=== PATIENT | male | born 1960 | race African-American/Black ===

== ENCOUNTER 2021-09-15 03:45 | Emergency (ER) | payer MEDICAID ==
[~2021-09-15] VITALS: Ht 175.3 cm; Wt 63.5 kg
[2021-09-15 03:47] VITALS: BP 118/80
== END 2021-09-15 05:19 | disposition home or self-care (01) ==
LOC: ER 03:45
DX: J45.901 Unspecified asthma with (acute) exacerbation (principal)
CPT/HCPCS: 71045

== ENCOUNTER 2022-12-14 07:38 | Inpatient (IN) | payer MEDICAID ==
[~2022-12-14] VITALS: Ht 175.3 cm; Wt 67.1 kg
[2022-12-14] MEDS ORDERED: MORPHINE SULFATE 4 MG/ML SYR/VIAL IV ONE (08:00)
[2022-12-14] MEDS ORDERED: PROCHLORPERAZINE EDISYLATE 5 MG/ML 2ML VIAL IV ONE (08:00)
[2022-12-14] MEDS ORDERED: SODIUM CHLORIDE 0.9% 1,000 ML IVB ONE (08:00)
[2022-12-14] MEDS ORDERED: PANTOPRAZOLE 40 MG/10 ML VIAL INJ IV ONE (08:00)
[2022-12-14 08:26] LABS: Basophils # (auto) 0 10 ^3/uL (0-0.2); Basophils % (auto) 0.9 % (0.0-2.0); Eosinophils # (auto) 0.1 10 ^3/uL (0-0.8); Eosinophils % (auto) 2.3 % (0.0-7.0); Hematocrit 40.5 % (41.0-53.0); Hemoglobin 13.8 g/dL (13.5-17.5); Lymphocytes # (auto) 1.2 10 ^3/uL (0.4-5.4); Mean Corpuscular Hemoglobin 33.3 pg (28.0-32.0); Mean Corpuscular Hgb Conc. 34.2 g/dL (32.0-36.0); Mean Corpuscular Volume 97.4 fL (80.0-100.0); Monocytes # (auto) 0.4 10 ^3/uL (0-1.3); Monocytes % (auto) 7.5 % (0.0-12.0); Neutrophils # (auto) 3.3 10 ^3/uL (1.6-8.6); Neutrophils % (auto) 65.3 % (37.0-80.0); Red Blood Cells 4.15 10^6/uL (4.5-5.90); White Blood Cell 5.1 10^3/uL (4.4-10.8)
[2022-12-14 08:48] LABS: Alanine Aminotransferase 20 U/L (16-61); Albumin 3.4 g/dL (3.4-5.0); Anion Gap 4 (5-15); Blood Alcohol < 3.0 mg/dL (<10); Blood Urea Nitrogen 8 mg/dL (7-18); Calcium 8.1 mg/dL (8.5-10.1); Carbon Dioxide 26 mmol/L (21-32); Chloride 113 mmol/L (98-107); Glucose 103 mg/dL (74-106); Lipase 111 U/L (73-393); Potassium 4.2 mmol/L (3.5-5.1); Sodium 143 mmol/L (136-145)
[2022-12-14 08:52] LABS: Alkaline Phosphatase 50 U/L (45-117); Aspartate Aminotransferase 45 U/L (15-37); BUN/Creatinine Ratio 7.1 (10.0-20.0); Bilirubin, Total 0.5 mg/dL (0.2-1.0); GFR African American 85 mL/min; GFR Non-African American 70 mL/min; Total Protein 6.4 g/dL (6.4-8.2)
[2022-12-14] MEDS ORDERED: IOHEXOL 300 MG/ML 100ML BOTTLE IJ ONE (09:11)
[2022-12-14 11:29] LABS: Urine Bacteria FEW /hpf (None Seen); Urine Blood 1+ /uL (Negative); Urine WBC 1 /hpf (0 - 3)
[2022-12-14] MEDS ORDERED: DOCUSATE SOD 100 MG CAP PO PRN (11:30)
[2022-12-14] MEDS ORDERED: PANTOPRAZOLE 80 MG in SODIUM CHL 0.9% 100 ML IV ONE (11:30)
[2022-12-14] MEDS ORDERED: SODIUM CHLORIDE 0.9% 1,000 ML IV ONE (11:30)
[2022-12-14] MEDS ORDERED: MORPHINE SULFATE INJ 2 MG/ml SYRG IM ONE (11:30)
[2022-12-14] MEDS ORDERED: PANTOPRAZOLE 40mg/50ML NS AE 50 ML IV ONE (11:30)
[2022-12-14] MEDS ORDERED: MORPHINE SULFATE INJ 2 MG/ml SYRG IV PRN (11:30)
[2022-12-14 11:32] LABS: Urine Specific Gravity 1.052 (1.001-1.035)
[2022-12-14] MEDS ORDERED: SODIUM CHLORIDE 0.9% 1,800 ML IV ONE (11:45)
[2022-12-14 11:58] LABS: Alcohol, Urine < 3.0 mg/dL (0-10); Amphetamine Screen, Urine NEGATIVE (NEGATIVE); Barbiturate Scree,Urine NEGATIVE (NEGATIVE); Benzodiazephine Screen, Urine NEGATIVE (NEGATIVE); Cannabinoid Screen, Urine POSITIVE (NEGATIVE)
[2022-12-14 12:06] LABS: Cocaine Screen, Urine NEGATIVE (NEGATIVE); Opiate Scree,Urine NEGATIVE (NEGATIVE); Phencyclidine Screen, Urine NEGATIVE (NEGATIVE)
[2022-12-14 12:10] LABS: Hematocrit 40.2 % (41.0-53.0); Hemoglobin 13.7 g/dL (13.5-17.5)
[2022-12-14 12:21] LABS: INR 1.06 (0.9-1.15)
[2022-12-14] MEDS: cefTRIAXone 1GM/50ML D5W 50 ML IV SCH (13:22)
[2022-12-14] MEDS: ONDANSETRON HCL 4 MG/2 ML VIAL IV PRN ×3 (13:29→19:28)
[2022-12-14] MEDS: SODIUM CHLORIDE 0.9% 1,000 ML IV SCH ×2 (13:57→23:59)
[2022-12-14 18:57] LABS: Hematocrit 35.8 % (41.0-53.0); Hemoglobin 12.1 g/dL (13.5-17.5)
[2022-12-14 23:47] VITALS: BP 152/79
[2022-12-15 00:44] LABS: Hematocrit 35.1 % (41.0-53.0); Hemoglobin 11.8 g/dL (13.5-17.5)
[2022-12-15 03:58] VITALS: BP 152/79
[2022-12-15] MEDS: SODIUM CHLORIDE 0.9% 1,000 ML IV SCH ×3 (04:10→20:50)
[2022-12-15 05:00] VITALS: BP 119/63
[2022-12-15 06:30] LABS: Basophils # (auto) 0 10 ^3/uL (0-0.2); Basophils % (auto) 0.8 % (0.0-2.0); Eosinophils # (auto) 0.1 10 ^3/uL (0-0.8); Eosinophils % (auto) 2.1 % (0.0-7.0); Hematocrit 35.3 % (41.0-53.0); Hemoglobin 12.1 g/dL (13.5-17.5); Lymphocytes # (auto) 1.4 10 ^3/uL (0.4-5.4); Lymphocytes % (auto) 26.9 % (10.0-50.0); Mean Corpuscular Hemoglobin 33.3 pg (28.0-32.0); Mean Corpuscular Hgb Conc. 34.2 g/dL (32.0-36.0); Mean Corpuscular Volume 97.3 fL (80.0-100.0); Monocytes # (auto) 0.4 10 ^3/uL (0-1.3); Monocytes % (auto) 8.5 % (0.0-12.0); Neutrophils # (auto) 3.3 10 ^3/uL (1.6-8.6); Neutrophils % (auto) 61.7 % (37.0-80.0); Nucleated Red Blood Cells % 0.1 %; Red Blood Cells 3.63 10^6/uL (4.5-5.90); Red Cell Distribution Width 12.7 % (11.8-14.3); White Blood Cell 5.3 10^3/uL (4.4-10.8)
[2022-12-15 06:41] LABS: Albumin 2.7 g/dL (3.4-5.0); Calcium 7.2 mg/dL (8.5-10.1); Potassium 3.1 mmol/L (3.5-5.1)
[2022-12-15 06:43] LABS: BUN/Creatinine Ratio 5.7 (10.0-20.0); Bilirubin, Total 0.6 mg/dL (0.2-1.0); Total Protein 5.1 g/dL (6.4-8.2)
[2022-12-15] MEDS ORDERED: POTASSIUM CHL 20 Meq TABLET PO ONE (07:00)
[2022-12-15] MEDS: cefTRIAXone 1GM/50ML D5W 50 ML IV SCH (08:12)
[2022-12-15] MEDS: ONDANSETRON HCL 4 MG/2 ML VIAL IV PRN (08:13)
[2022-12-15 09:17] VITALS: BP 135/73
[2022-12-15] MEDS ORDERED: POTASSIUM EFFERVESENT TAB 25 MEQ GT ONE (10:15)
[2022-12-15 12:10] LABS: Hematocrit 36.5 % (41.0-53.0); Hemoglobin 12.5 g/dL (13.5-17.5)
[2022-12-15 17:17] VITALS: BP 102/48
[2022-12-15 18:40] LABS: Hematocrit 37.4 % (41.0-53.0); Hemoglobin 12.6 g/dL (13.5-17.5)
[2022-12-15 22:00] VITALS: BP 134/68
[2022-12-16 05:00] VITALS: BP 147/68
[2022-12-16] MEDS: SODIUM CHLORIDE 0.9% 1,000 ML IV SCH (05:10)
[2022-12-16 07:02] LABS: Basophils # (auto) 0 10 ^3/uL (0-0.2); Basophils % (auto) 0.8 % (0.0-2.0); Eosinophils # (auto) 0.2 10 ^3/uL (0-0.8); Eosinophils % (auto) 4.6 % (0.0-7.0); Hematocrit 38.1 % (41.0-53.0); Lymphocytes # (auto) 1.7 10 ^3/uL (0.4-5.4); Lymphocytes % (auto) 33.7 % (10.0-50.0); Mean Corpuscular Hemoglobin 32.9 pg (28.0-32.0); Mean Corpuscular Hgb Conc. 34.1 g/dL (32.0-36.0); Mean Corpuscular Volume 96.5 fL (80.0-100.0); Monocytes # (auto) 0.4 10 ^3/uL (0-1.3); Monocytes % (auto) 7.7 % (0.0-12.0); Neutrophils # (auto) 2.7 10 ^3/uL (1.6-8.6); Neutrophils % (auto) 53.2 % (37.0-80.0); Nucleated Red Blood Cells % 0.2 %; Red Blood Cells 3.95 10^6/uL (4.5-5.90); Red Cell Distribution Width 12.9 % (11.8-14.3)
[2022-12-16 07:24] LABS: BUN/Creatinine Ratio 5.6 (10.0-20.0); Calcium 8.2 mg/dL (8.5-10.1); Potassium 3.3 mmol/L (3.5-5.1)
[2022-12-16] MEDS: cefTRIAXone 1GM/50ML D5W 50 ML IV SCH (08:47)
[2022-12-16] MEDS ORDERED: ALBU108A14 IN ×2 (09:41→10:00)
[2022-12-16] MEDS ORDERED: ZOFR4T PO ×2 (09:41→10:00)
[2022-12-16] MEDS ORDERED: POTASSIUM EFFERVESENT TAB 25 MEQ PO ONE (09:45)
[2022-12-16 10:20] VITALS: BP 132/75
== END 2022-12-16 11:00 | disposition home or self-care (01) | DRG 253 ==
LOC: ER 07:38 → TELE 11:26 → TELE-CENTR 21:58
PROVIDERS: ADMIT Nurse Practitioner Family; ATTEND Nurse Practitioner Family
DX: K92.2 Gastrointestinal hemorrhage, unspecified (principal); R71.0 Precipitous drop in hematocrit; E87.6 Hypokalemia; F20.9 Schizophrenia, unspecified; F12.10 Cannabis abuse, uncomplicated; F17.210 Nicotine dependence, cigarettes, uncomplicated; F31.9 Bipolar disorder, unspecified; F43.10 Post-traumatic stress disorder, unspecified; Z71.6 Tobacco abuse counseling
CPT/HCPCS: 36415; 74177; 80048; 80053; 80307; 80320; 81001; 83690; 85014; 85018; 85025; 85610; 86850; 86900; 86901; 93005; 96361; 96365; 96366; 96368; 96375; 96376; C9113; G0378; J0696; J2405

== ENCOUNTER 2023-05-14 10:40 | Emergency (ER) | payer MEDICAID ==
[~2023-05-14] VITALS: Ht 175.3 cm; Wt 59.3 kg
[~2023-05-14 10:40] MED LIST: ALBU108A14 IN; ZOFR4T PO
[2023-05-14 11:30] VITALS: BP 119/74; PULSE 90; RESP 16; O2SAT 97
== END 2023-05-14 16:16 | disposition left against medical advice (07) ==
LOC: ER 10:40
DX: M79.644 Pain in right finger(s) (principal); Z53.21 Procedure and treatment not carried out due to patient leaving prior to being seen by health care provider
CPT/HCPCS: 73140; 99281; J7030

== ENCOUNTER 2023-10-05 23:18 | Emergency (ER) | payer MEDICARE, MEDICAID ==
[~2023-10-05] VITALS: Ht 182.9 cm; Wt 60.0 kg
[2023-10-06 03:06] VITALS: BP 142/78; PULSE 88; RESP 16; TEMP 98.6; O2SAT 95
== END 2023-10-06 03:04 | disposition home or self-care (01) ==
LOC: EDBD 23:18 → ER 23:18
DX: M25.511 Pain in right shoulder (principal); M25.551 Pain in right hip; F10.10 Alcohol abuse, uncomplicated; F17.210 Nicotine dependence, cigarettes, uncomplicated; F12.10 Cannabis abuse, uncomplicated; R53.1 Weakness; W18.09XA Striking against other object with subsequent fall, initial encounter; Y93.89 Activity, other specified; Y92.89 Other specified places as the place of occurrence of the external cause; Y99.8 Other external cause status
CPT/HCPCS: 73030; 73502; 93005

== ENCOUNTER 2024-11-02 13:27 | Emergency (ER) | payer MEDICARE, MEDICAID ==
[~2024-11-02] VITALS: Ht 175.3 cm; Wt 52.9 kg
[2024-11-02] MEDS: DexAMETHasone 4 MG TAB PO ONE (14:25)
--- NOTE | 2024-11-02 14:27 | DVH ---
EXAM: XY CHEST PORTABLE REASON FOR EXAM: sob TECHNIQUE: 1 view of the chest COMPARISON: CHEST PORTABLE on DOS: 09/15/21 FINDINGS/IMPRESSION: LUNGS: No pleural effusion, consolidation, or pneumothorax MEDIASTINUM: Unremarkable BONES: No acute osseous abnormality OTHER: None
--- NOTE | 2024-11-02 14:30 | ED.PDOC ---
SOB-HPI HPI Comments 64 y/o M, with PMHx of asthma and schizophrenia presents to the ED for CC of shortness of breath. Patient states, he has been experiencing shortness of breath with an associated wheezing like cough onset, Saturday (10/30/24). Patient reports, that he has been using his inhaler and breathing treatments at home; endorses no relief of symptoms. Patient drinks alcohol and smokes tobacco and marijuana. Patient denies fever, chills, sweats, nasal congestion, or sore throat. No other symptoms or modifying factors present at this time. Chief Complaint: Shortness of Breath Time Seen by MD: 14:05 Primary Care Provider: niko Hernandez notes: Nurses Notes, Medications, Allergies Information Source: Patient Mode of Arrival: Ambulatory Severity: Moderate Timing: Days Duration: Since onset Context: At Rest PE Risk Factors: None History of: Asthma Prehospital treatment: Breathing Tx Modifying Factors: Nothing Associated Signs and Symptoms: Wheeze, Cough If cough with SOB: Non-Productive Past Medical History PAST MEDICAL HISTORY: Asthma, Schizophrenia Family History Family History: Reviewed,noncontributory to illness, No family hx of Cancer, No family hx of DM, No family hx of Heart jamie, No family hx of HTN, No family hx ofKidney jamie, No family hx of Liver jamie, No family hx of Lung jamie, No family hx of Stroke Social History Smoker: Cigarettes Alcohol: Occasionally Drugs: Marijuana Lives In: Home Constitutional: denies: chills, diaphoresis, fatigue, fever, malaise, sweats, weakness, others EENTM: denies: blurred vision, double vision, ear bleeding, ear discharge, ear drainage, ear pain, ear ringing, eye pain, eye redness, hearing loss, mouth pain, mouth swelling, nasal discharge, nose bleeding, nose congestion, nose pain, photophobia, tearing, throat pain, throat swelling, voice changes, others Respiratory: reports: cough, shortness of breath; denies: hemoptysis, orthopnea, SOB at rest, SOB with excertion, stridor, wheezing, others Cardiovascular: denies: chest pain, dizzy spells, diaphoresis, Dyspnea on exertion, edema, irregular heart beat, left arm pain, lightheadedness, palpitations, PND, syncope, others Gastrointestinal: denies: abdomen distended, abdominal pain, blood streaked bowels, constipated, diarrhea, dysphagia, difficulty swallowing, hematemesis, melena, nausea, poor appetite, poor fluid intake, rectal bleeding, rectal pain, vomiting, others Genitourinary: denies: burning, dysuria, flank pain, frequency, hematuria, incontinence, penile discharge, penile sore, pain, testicle pain, testicle swelling, urgency, others Neurological: denies: dizziness, fainting, headache, left sided numbness, left sided weakness, numbness, paresthesia, pre-existing deficit, right sided numbness, right sided weakness, seizure, speech problems, tingling, tremors, weakness, others Musculoskeletal: denies: back pain, gout, joint pain, joint swelling, muscle pain, muscle stiffness, neck pain, others Integumetry: denies: bruises, change in color, change in hair/nails, dryness, laceration, lesions, lumps, rash, wounds, others Allergic/Immunocompromised: denies: Difficulty Healing, Frequent Infections, Hives, Itching, others Hematologic/Lymphatic: denies: anemia, blood clots, easy bleeding, easy bruising, swollen glands, others Endocrine: denies: excessive hunger, excessive sweating, excessive thirst, excessive urination, flushing, intolerance to cold, intolerance to heat, unexplained weight gain, unexplained weight loss, others Psychiatric: denies: anxiety, bipolar disorder, depression, hopeless, panic disorder, schizophrenia, sleepless, suicidal, others All Other Systems: Reviewed and Negative Physical Exam General Appearance: No Apparent Distress, Normal HEENT: Normal ENT Inspection, Pharynx Normal, TMs Normal Neck: Full Range of Motion, Non-Tender, Normal, Normal Inspection Respiratory: Chest Non-Tender, Lungs Clear, No Accessory Muscle Use, No Respiratory Distress, Normal Breath Sounds Cardiovascular: No Edema, No Murmur, No Gallop, Normal Peripheral Pulses, Regular Rate/Rhythm Breast Exam: Deferred Gastrointestinal: No Organomegaly, Non Tender, No Pulsatile Mass, Normal Bowel Sounds, Soft Genitalia: Deferred Pelvic: Deferred Rectal: Deferred Extremities: No calf tenderness, Normal capillary refill, Normal inspection, Normal range of motion, Non-tender, No pedal edema Musculoskeletal : Apperance: Normal Neurologic: Alert, 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 Was a procedure done?: No Differential Dx Differential Diagnosis: Anxiety, Asthma, Bronchitis, CHF, COPD, Hyperventilation, Panic Attack, Pneumonia, Pneumothorax, Respiratory Distress, Sinusitis, Pharyngitis, URI X-Ray, Labs, Meds, VS Vital Signs Date Time Temp Pulse Resp B/P (MAP) Pulse Ox O2 Delivery O2 Flow Rate FiO2 11/02/24 14:32 16 97 Room Air* 0 21 11/02/24 14:05 99.3 99 20 140/80 (100) 96 99.3 11/02/24 14:04 20 96 Room Air* 0 21 Current Medications Medications (Trade) Dose Ordered Sig/Annita Route Start Time Stop Time Status Last Admin Albuterol (Ventolin Medneb) 5 mg ONCE ONCE NEB 11/02/24 14:00 11/02/24 14:01 DC 11/02/24 14:31 Dexamethasone (Decadron Tablet) 4 mg ONCE ONCE PO 11/02/24 14:00 11/02/24 14:01 DC 11/02/24 14:25 [place] [id number] Ph: [phone] DIAGNOSTIC IMAGING Diagnostic Imaging Report : [id number] Signed PATIENT: NANI BEAVERS ACCT: [id number] UNIT: [id number] : 1960 LOC: ER ROOM / BED: / AGE / SEX: 64 / M ADM STATUS: REG ER SERVICE [id number] ORDERING PHYSICIAN: JAGDEEP KHAN MD PROCEDURE(s): CXRP - CHEST PORTABLE REASON: sob ORDER NUMBER(s): [id number], ACCESSION NUMBER(s): [id number] EXAM: XY CHEST PORTABLE REASON FOR EXAM: sob TECHNIQUE: 1 view of the chest COMPARISON: CHEST PORTABLE on DOS: 09/15/21 FINDINGS/IMPRESSION: LUNGS: No pleural effusion, consolidation, or pneumothorax MEDIASTINUM: Unremarkable BONES: No acute osseous abnormality OTHER: None ATED BY: KRISTA SALAZAR MD DICTATED DATE/TIME: 11/02/24 [id number] SIGNED BY: KRISTA SALAZAR MD SIGNED DATE/TIME: 11/02/24 1424 CC: Time of 1ST Reevaluation: 14:35 Reevaluation 1ST: Unchanged Time of 2ND Reevaluation: 15:37 Reevaluation 2ND: Resolved Patient Education/Counseling: Diagnosis, Treatment, Prognosis, Need For Follow Up Family Education/Counseling: No Family Present Additional Information The following tests were ordered, and results were reviewed by me: CXR I reviewed and agreed with the following test results read by other providers: CXR I discussed treatment and results with medical personnel and: patient Comprehensive systems review obtained and negative except for what is stated in the HPI. Departure 1 Departure Time of Disposition: 15:37 Impression: Primary Impression: Asthmatic bronchitis with acute exacerbation Qualified Codes: J45.21 - Mild intermittent asthma with (acute) exacerbation Additional Impressions: Tobacco abuse Tobacco abuse counseling Disposition: HOME / SELF CARE / HOMELESS Condition: Good e-Prescriptions Prednisone (Prednisone) 20 Mg Tab 20 MG PO DAILY for 5 Days, #5 TAB Prov: JAGDEEP KHAN MD 11/02/24 Discharged With: Self Critical Care Note Critical Care Time?: No Stability Stability form required: No Heart Score Heart Score: Heart Score Response (Comments) Value History N/A 0 EKG N/A 0 Age N/A 0 Risk Factors N/A 0 Troponin N/A 0 Total 0 I personally scribed for JAGDEEP KHAN MD ([email or web address]) on 11/02/24 at 14:30. Electronically submitted by Chantelle Peterson ([email or web address]). I personally scribed for JAGDEEP KHAN MD ([email or web address]) on 11/02/24 at 14:32. Electronically submitted by Chantelle Peterson ([email or web address]). JAGDEEP KHAN MD November 02, 2024 14:30
[2024-11-02] MEDS: ALBUTEROL SULF 2.5 MG/0.5ML(0.5%) NEB SOLN NEB ONE (14:31)
[2024-11-02] MEDS ORDERED: PRED20TA2 PO (15:38)
[2024-11-02 15:54] VITALS: BP 136/74; PULSE 84; RESP 17; TEMP 99.7; O2SAT 98
== END 2024-11-02 15:57 | disposition home or self-care (01) ==
LOC: ER 13:31
DX: J45.901 Unspecified asthma with (acute) exacerbation (principal); Z71.6 Tobacco abuse counseling; F20.9 Schizophrenia, unspecified; F10.90 Alcohol use, unspecified, uncomplicated; Y90.9 Presence of alcohol in blood, level not specified; F17.210 Nicotine dependence, cigarettes, uncomplicated; F19.90 Other psychoactive substance use, unspecified, uncomplicated
CPT/HCPCS: 71045; 94640; 99283; J8540

== ENCOUNTER 2025-05-29 04:25 | Inpatient (IN) | payer MEDICARE, MEDICAID ==
[~2025-05-29] VITALS: Ht 175.3 cm; Wt 58.9 kg
[2025-05-29 04:25] VITALS: RESP 15
[~2025-05-29 04:25] MED LIST changes: +PRED20TA2 PO
--- NOTE | 2025-05-29 04:51 | ED.PDOC ---
SOB-HPI HPI Comments 64-year-old male who came to ER for shortness of breath. Patient does have history of asthma. 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 Inhalers and prednisone taken offered no relief. Chief Complaint: Shortness of breath Time Seen by MD: 04:51 Primary Care Provider: niko Hernandez notes: Nurses Notes Information Source: Patient Mode of Arrival: EMS Past Medical History PAST MEDICAL HISTORY: Asthma, Schizophrenia Family History Family History: Reviewed,noncontributory to illness, No family hx of Cancer, No family hx of DM, No family hx of Heart jamie, No family hx of HTN, No family hx ofKidney jamie, No family hx of Liver jamie, No family hx of Lung jamie, No family hx of Stroke Social History Smoker: Cigarettes Alcohol: Occasionally Drugs: Marijuana Lives In: Home Constitutional: denies: chills, diaphoresis, fatigue, fever, malaise, sweats, weakness, others EENTM: denies: blurred vision, double vision, ear bleeding, ear discharge, ear drainage, ear pain, ear ringing, eye pain, eye redness, hearing loss, mouth pain, mouth swelling, nasal discharge, nose bleeding, nose congestion, nose pain, photophobia, tearing, throat pain, throat swelling, voice changes, others Respiratory: reports: cough, shortness of breath, wheezing; denies: hemoptysis, orthopnea, SOB at rest, SOB with excertion, stridor, others Cardiovascular: denies: chest pain, dizzy spells, diaphoresis, Dyspnea on exertion, edema, irregular heart beat, left arm pain, lightheadedness, palpitations, PND, syncope, others Gastrointestinal: denies: abdomen distended, abdominal pain, blood streaked bowels, constipated, diarrhea, dysphagia, difficulty swallowing, hematemesis, melena, nausea, poor appetite, poor fluid intake, rectal bleeding, rectal pain, vomiting, others Genitourinary: denies: burning, dysuria, flank pain, frequency, hematuria, incontinence, penile discharge, penile sore, pain, testicle pain, testicle swelling, urgency, others Neurological: denies: dizziness, fainting, headache, left sided numbness, left sided weakness, numbness, paresthesia, pre-existing deficit, right sided numbness, right sided weakness, seizure, speech problems, tingling, tremors, weakness, others Musculoskeletal: denies: back pain, gout, joint pain, joint swelling, muscle pain, muscle stiffness, neck pain, others Integumetry: denies: bruises, change in color, change in hair/nails, dryness, laceration, lesions, lumps, rash, wounds, others Allergic/Immunocompromised: denies: Difficulty Healing, Frequent Infections, Hives, Itching, others Hematologic/Lymphatic: denies: anemia, blood clots, easy bleeding, easy bruising, swollen glands, others Endocrine: denies: excessive hunger, excessive sweating, excessive thirst, excessive urination, flushing, intolerance to cold, intolerance to heat, unexp lained weight gain, unexplained weight loss, others Psychiatric: denies: anxiety, bipolar disorder, depression, hopeless, panic disorder, schizophrenia, sleepless, suicidal, others Physical Exam General Appearance: No Apparent Distress, Normal HEENT: Normal ENT Inspection, Pharynx Normal, TMs Normal Neck: Full Range of Motion, Non-Tender, Normal, Normal Inspection Respiratory: Chest Non-Tender, No Accessory Muscle Use, Wheezing Cardiovascular: No Edema, No JVD, No Murmur, No Gallop, Normal Peripheral Pulses, Regular Rate/Rhythm Breast Exam: Deferred Gastrointestinal: No Organomegaly, Non Tender, No Pulsatile Mass, Normal Bowel Sounds, Soft Genitalia: Deferred Pelvic: Deferred Rectal: Deferred Extremities: No calf tenderness, Normal capillary refill, Normal inspection, Normal range of motion, Non-tender, No pedal edema Musculoskeletal : Apperance: Normal 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 Was a procedure done?: No Differential Dx Differential Diagnosis: Anxiety, Asthma, Bronchitis, Respiratory Distress, Pharyngitis, URI X-Ray, Labs, Meds, VS Vital Signs Date Time Temp Pulse Resp B/P (MAP) Pulse Ox O2 Delivery O2 Flow Rate FiO2 05/29/25 05:31 97.8 79 15 133/69 (90) 90 97.8 05/29/25 05:00 18 98 Room Air* 0 21 05/29/25 04:48 62 05/29/25 04:37 98.3 80 22 152/102 98 98.3 05/29/25 04:25 15 Room Air* 0 21 Lab Test 05/29/25 05:08 Range/Units White Blood Count 5.9 4.4-10.8 10^3/uL Red Blood Count 4.29 L 4.5-5.90 10^6/uL Hemoglobin 13.9 13.5-17.5 g/dL Hematocrit 41.8 41.0-53.0 % Mean Corpuscular Volume 97.4 80.0-100.0 fL Mean Corpuscular Hemoglobin 32.5 H 28.0-32.0 pg Mean Corpuscular Hemoglobin Concent 33.3 32.0-36.0 g/dL Red Cell Distribution Width 12.7 11.8-14.3 % Platelet Count 235 140-450 10^3/uL Mean Platelet Volume 6.8 L 6.9-10.8 fL Neutrophils (%) (Auto) 79.5 37.0-80.0 % Lymphocytes (%) (Auto) 13.6 10.0-50.0 % Monocytes (%) (Auto) 6.2 0.0-12.0 % Eosinophils (%) (Auto) 0.3 0.0-7.0 % Basophils (%) (Auto) 0.4 0.0-2.0 % Neutrophils # (Auto) 4.7 1.6-8.6 10 ^3/uL Lymphocytes # (Auto) 0.8 0.4-5.4 10 ^3/uL Monocytes # (Auto) 0.4 0-1.3 10 ^3/uL Eosinophils # (Auto) 0 0-0.8 10 ^3/uL Basophils # (Auto) 0 0-0.2 10 ^3/uL Nucleated Red Blood Cells 0.0 % Sodium Level 141 136-145 mmol/L Potassium Level 4.2 3.5-5.1 mmol/L Chloride Level 108 H 98-107 mmol/L Carbon Dioxide Level 27 20-31 mmol/L Anion Gap 6 5-15 Blood Urea Nitrogen 12 9-23 mg/dL Creatinine 0.99 0.700-1.30 mg/dL Glomerular Filtration Rate Calc 84 >90 mL/min BUN/Creatinine Ratio 12.1 10.0-20.0 Serum Glucose 107 H 74-106 mg/dL Calcium Level 8.8 8.7-10.4 mg/dL Magnesium Level 2.2 1.6-2.6 mg/dL Total Bilirubin 0.6 0.2-1.0 mg/dL Aspartate Amino Transferase (AST) 33 13-40 U/L Alanine Aminotransferase (ALT) 19 7-40 U/L Alkaline Phosphatase 55 46-116 U/L Troponin I High Sensitivity 7 </=54 ng/L B-Type Natriuretic Peptide 22.12 0-100 pg/mL Total Protein 6.3 5.7-8.2 g/dL Albumin 4.0 3.2-4.8 g/dL Current Medications Medications (Trade) Dose Ordered Sig/Annita Route Start Time Stop Time Status Last Admin Prednisone 40 mg ONCE ONCE PO 05/29/25 05:00 05/29/25 05:01 DC 05/29/25 05:00 Albuterol (Ventolin Medneb) 5 mg ONCE ONCE NEB 05/29/25 05:00 05/29/25 05:01 DC 05/29/25 05:00 Magnesium Sulfate/ Dextrose 100 ml @ 100 mls/hr ONCE ONCE IV 05/29/25 05:00 05/29/25 05:59 DC 05/29/25 05:00 Time of 1ST Reevaluation: 04:47 Reevaluation 1ST: Unchanged Patient Education/Counseling: Diagnosis, Treatment Family Education/Counseling: No Family Present SEPSIS Sepsis Screen Physician Orders Chest Portable (05/29/25 04:46) Electrocardigram (05/29/25 04:46) Troponin-I Hs (05/29/25 05:46) Troponin-I Hs (05/29/25 07:46) Venous Blood Gas (05/29/25 04:46) Vital Signs Date Time Temp Pulse Resp B/P (MAP) Pulse Ox O2 Delivery O2 Flow Rate FiO2 05/29/25 05:31 97.8 79 15 133/69 (90) 90 97.8 05/29/25 05:00 18 98 Room Air* 0 21 05/29/25 04:48 62 05/29/25 04:37 98.3 80 22 152/102 98 98.3 05/29/25 04:25 15 Room Air* 0 21 Laboratory Tests Test 05/29/25 05:08 White Blood Count 5.9 10^3/uL (4.4-10.8) Medications Medications Dose Ordered Sig/Annita Route Start Time Stop Time Status Last Admin Dose Admin Albuterol 5 mg ONCE ONCE NEB 05/29/25 05:00 05/29/25 05:01 DC 05/29/25 05:00 Magnesium Sulfate/ Dextrose 100 ml @ 100 mls/hr ONCE ONCE IV 05/29/25 05:00 05/29/25 05:59 DC 05/29/25 05:00 Prednisone 40 mg ONCE ONCE PO 05/29/25 05:00 05/29/25 05:01 DC 05/29/25 05:00 Departure 1 Departure Time of Disposition: 06:30 Impression: Primary Impression: Tobacco abuse Additional Impressions: Asthmatic bronchitis with acute exacerbation Respiratory failure with hypoxia Disposition: ADMITTED INPATIENT Admit to: Med Surg Condition: Guarded Discharged With: Self Comments Patient with COPD, still SOB after treatment. Patient will need admission for supportive care and further workup Critical Care Note Critical Care Time?: No Stability Stability form required: No Heart Score Heart Score: Heart Score Response (Comments) Value History N/A 0 EKG N/A 0 Age N/A 0 Risk Factors N/A 0 Troponin N/A 0 Total 0 I personally scribed for EMIR REBOLLEDO MD ([email or web address]) on 05/29/25 at 04:51. Electronically submitted by August Ashton ([email or web address]). EMIR REBOLLEDO MD May 29, 2025 04:51
[2025-05-29] MEDS: predniSONE 20 MG TAB PO ONE (05:00)
[2025-05-29] MEDS: MAGNESIUM SULFATE 1GM/100ML 100 ML IV ONE (05:00)
[2025-05-29] MEDS: ALBUTEROL SULF 2.5 MG/0.5ML(0.5%) NEB SOLN NEB ONE (05:00)
[2025-05-29] MEDS: ALBUTEROL SULF 2.5 MG/0.5ML(0.5%) NEB SOLN ONE (05:00)
--- NOTE | 2025-05-29 05:18 | DVH ---
CHEST RADIOGRAPH INDICATION: SOB TECHNIQUE: Single frontal view of the chest was obtained COMPARISON: XY CHEST PORTABLE on DOS: 11/02/24, CHEST PORTABLE on DOS: 09/15/21, CXRP on DOS: 09/15/21 FINDINGS: Lines and Tubes: None Lungs: Clear Pleura: No effusion. No pneumothorax. Cardiomediastinal contours: Unremarkable Bones: Unremarkable IMPRESSION: 1. No acute disease.
[2025-05-29 05:22] LABS: Hematocrit 41.8 % (41.0-53.0); Hemoglobin 13.9 g/dL (13.5-17.5); Mean Corpuscular Hemoglobin 32.5 pg (28.0-32.0); Mean Corpuscular Volume 97.4 fL (80.0-100.0); Nucleated Red Blood Cells % 0.0 %
[2025-05-29 05:37] LABS: Alanine Aminotransferase 19 U/L (7-40); Albumin 4.0 g/dL (3.2-4.8); Alkaline Phosphatase 55 U/L (46-116); Anion Gap 6 (5-15); BUN/Creatinine Ratio 12.1 (10.0-20.0); Blood Urea Nitrogen 12 mg/dL (9-23); Calcium 8.8 mg/dL (8.7-10.4); Carbon Dioxide 27 mmol/L (20-31); Magnesium 2.2 mg/dL (1.6-2.6); Potassium 4.2 mmol/L (3.5-5.1); Sodium 141 mmol/L (136-145); Total Protein 6.3 g/dL (5.7-8.2)
[2025-05-29 05:38] LABS: Bilirubin, Total 0.6 mg/dL (0.2-1.0); Chloride 108 mmol/L (98-107); Glucose 107 mg/dL (74-106)
[2025-05-29] MEDS: AZITHROMYCIN 500MG/250ML 250 ML IV ONE (06:54)
[2025-05-29 07:20] VITALS: PULSE 79; RESP 15; O2SAT 94
[2025-05-29] MEDS ORDERED: SODIUM CHLORIDE 0.9% 1,000 ML IV SCH (07:45)
[2025-05-29] MEDS ORDERED: PANTOPRAZOLE 40 MG/10 ML VIAL INJ IV ONE (07:45)
[2025-05-29] MEDS ORDERED: ONDANSETRON HCL 4 MG/2 ML VIAL IV PRN (07:45)
[2025-05-29] MEDS ORDERED: DOCUSATE SOD 100 MG CAP PO PRN (07:45)
[2025-05-29] MEDS ORDERED: MORPHINE SULFATE INJ 2 MG/ml SYRG IV PRN (07:45)
[2025-05-29] MEDS ORDERED: NITROGLYCERIN 0.4 MG SL TAB SL PRN (07:45)
--- NOTE | 2025-05-29 07:46 | DVHHP2 ---
History of Present Illness Reason for Visit: shortness of breath History of Present Illness 64-year-old male with past medical history of asthma, schizophrenia, prior lower GI bleed with polyps removed, and peptic ulcer disease presents with shortness of breath. Patient reports that on Saturday, he was placing [place] lights ar ound the chimney while on the roof and believes he inhaled air coming from the chimney. Since that time, he has experienced progressively worsening shortness of breath, initially with talking and now also with ambulation. He states he feels like he cannot catch his breath, with symptoms worsening last night. He also reports episodes of sweating. He has had a cough but denies fever. Patient reports he is prescribed prednisone, and his doctor recently increased the dose to 20 mg twice daily, though he admits he has only taken one dose. He currently denies chest pain. In the ED, he was noted to have coarse wheezing throughout the lungs. He received albuterol treatments and prednisone. Laboratory evaluation showed CBC unremarkable, CMP unremarkable, troponin negative, and BNP negative. Chest X-ray was unremarkable. Patient reports a history of smoking and marijuana use and drinks beer occasionally but denies other illicit drug use. Given persistent wheezing, dyspnea, and hypoxia, patient will be admitted for acute hypoxic respiratory failure due to asthma exacerbation, requiring systemic steroids, bronchodilator therapy, and close monitoring. Past Medical History see hpi above Past Surgical History see hpi above Family History Reviewed, non-contributory to the management of this case. Past Social History does smoke cigarettes and marijuana, denies drug does drink beer Review of Systems Constitutional: No: Fever, Chills, Sweats, Weakness, Malaise, Other Eyes: No: Pain, Vision change, Conjunctivae inflammation, Eyelid inflammation, Other, Redness Respiratory: Shortness of breath, SOB with excertion, Wheezing; No: Cough, Dry, Hemoptysis, Pleuritic Pain, Sputum, Wheezing, Other Cardiovascular: No: Chest Pain, Palpitations, Orthopnea, Paroxysmal Noc. Dyspnea, Edema, Lt Headedness, Other Gastrointestinal: No: Nausea, Vomiting, Abdominal Pain, Diarrhea, Constipation, Melena, Hematochezia, Other Genitourinary: No Dysuria, No Frequency, No Incontinence, No Hematuria, No Retention, No Other Musculoskeletal: No: other, neck pain, shoulder pain, arm pain, back pain, hand pain, leg pain, foot pain Skin: No: Rash, Lesions, Jaundice, Bruising, Other Neurological: No: Weakness, Numbness, Incoordination, Change in speech, Confusion, Seizures, Other Allergies: Coded Allergies: NO KNOWN ALLERGIES (Unverified , 09/15/21) Exam Vital Signs Vital Signs Date Time Temp Pulse Resp B/P (MAP) Pulse Ox O2 Delivery O2 Flow Rate FiO2 05/29/25 06:00 72 20 118/71 (87) 92 05/29/25 05:31 97.8 97.8 05/29/25 05:00 Room Air* 0 21 General Appearance: Alert, Oriented X3, Cooperative, No acute distress HEENT: Atraumatic, PERRLA, EOMI, Mucous membr. moist/pink Respiratory: Other (wheezes heard throughtout ) Cardiovascular: Regular rate, Normal S1, Normal S2, No murmurs Abdominal: Normal bowel sounds, Soft, No tenderness, No hepatospenomegaly, No masses Extremities: No clubbing, No cyanosis, No edema, Normal pulses, No tenderness/swelling Skin: No rashes, No breakdown, No significant lesion Neuro: Normal gait, Normal speech, Strength at 5/5 X4 ext, Normal tone, Sensat ion intact, Cranial nerves 3-12 NL Psych/Mental Status: Mental status NL, Mood NL Labs/Xrays Chest x-ray unremarkable I reviewed labs, imaging CT scan abdomen pelvis, EKG and all diagnostic studies on this patient from ED records and the medical chart Labs Test 05/29/25 06:17 05/29/25 06:14 05/29/25 05:08 Range/Units Lactic Acid Level 2.0 0.4-2.0 mmol/L Troponin I High Sensitivity 6 </=54 ng/L White Blood Count 5.9 4.4-10.8 10^3/uL Red Blood Count 4.29 L 4.5-5.90 10^6/uL Hemoglobin 13.9 13.5-17.5 g/dL Hematocrit 41.8 41.0-53.0 % Mean Corpuscular Volume 97.4 80.0-100.0 fL Mean Corpuscular Hemoglobin 32.5 H 28.0-32.0 pg Mean Corpuscular Hemoglobin Concent 33.3 32.0-36.0 g/dL Red Cell Distribution Width 12.7 11.8-14.3 % Platelet Count 235 140-450 10^3/uL Mean Platelet Volume 6.8 L 6.9-10.8 fL Neutrophils (%) (Auto) 79.5 37.0-80.0 % Lymphocytes (%) (Auto) 13.6 10.0-50.0 % Monocytes (%) (Auto) 6.2 0.0-12.0 % Eosinophils (%) (Auto) 0.3 0.0-7.0 % Basophils (%) (Auto) 0.4 0.0-2.0 % Neutrophils # (Auto) 4.7 1.6-8.6 10 ^3/uL Lymphocytes # (Auto) 0.8 0.4-5.4 10 ^3/uL Monocytes # (Auto) 0.4 0-1.3 10 ^3/uL Eosinophils # (Auto) 0 0-0.8 10 ^3/uL Basophils # (Auto) 0 0-0.2 10 ^3/uL Nucleated Red Blood Cells 0.0 % Sodium Level 141 136-145 mmol/L Potassium Level 4.2 3.5-5.1 mmol/L Chloride Level 108 H 98-107 mmol/L Carbon Dioxide Level 27 20-31 mmol/L Anion Gap 6 5-15 Blood Urea Nitrogen 12 9-23 mg/dL Creatinine 0.99 0.700-1.30 mg/dL Glomerular Filtration Rate Calc 84 >90 mL/min BUN/Creatinine Ratio 12.1 10.0-20.0 Serum Glucose 107 H 74-106 mg/dL Calcium Level 8.8 8.7-10.4 mg/dL Magnesium Level 2.2 1.6-2.6 mg/dL Total Bilirubin 0.6 0.2-1.0 mg/dL Aspartate Amino Transferase (AST) 33 13-40 U/L Alanine Aminotransferase (ALT) 19 7-40 U/L Alkaline Phosphatase 55 46-116 U/L B-Type Natriuretic Peptide 22.12 0-100 pg/mL Total Protein 6.3 5.7-8.2 g/dL Albumin 4.0 3.2-4.8 g/dL SEPSIS Sepsis Screen Date sepsis recognized/suspect: May 29, 2025 Time Sepsis recognized/suspect: 424 Recent Procedure: No On Antibiotic Therapy: No Respiratory Rate >20: No Heart Rate >90: No Temp<36 C (96.8 F) or >38.3 C: No SBP <90 or MAP <65 mmHG: No New Acute Mental Status Change: No Is the patient on CPAP, BIPAP,: No Physician Orders Chest Portable (05/29/25 04:46) Electrocardigram (05/29/25 04:46) Troponin-I Hs (05/29/25 07:46) Venous Blood Gas (05/29/25 04:46) Blood Culture (05/29/25 06:02) Azithromycin 500mg/250ml (Zithromax 500m (05/29/25 06:15) Albuterol Medneb (Ventolin Medneb) (05/29/25 10:00) Ipratropium Medneb (Atrovent Medneb) (05/29/25 10:00) Methylprednisolone Sod Succ (Solu Medrol (05/29/25 14:00) Pantoprazole (Protonix) (05/29/25 07:45) Pantoprazole (Protonix) (05/29/25 10:00) Admit (05/29/25 07:35) Allergies (05/29/25 07:35) Code Status (05/29/25 07:35) 0.9% Ns 1000 Ml (05/29/25 07:45) Ondansetron Hcl (Zofran) (05/29/25 07:45) Docusate Sodium Capsule (Colace Capsule) (05/29/25 07:45) Enoxaparin Sodium (Lovenox) (05/29/25 10:00) Complete Blood Count (05/30/25 04:00) Comprehensive Metabolic Panel (05/30/25 04:00) Condition: Stable (05/29/25 07:35) BRP (05/29/25 07:35) Morphine Sulfate Injection (05/29/25 07:45) Sequential Compression Device (05/29/25 ) Nitroglycerin Sublingual (Ntrostat Subli (05/29/25 07:45) Stat Ekg For Chest Pain (05/29/25 07:35) Notify Md Of Changes From Base (05/29/25 07:35) 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 (05/29/25 07:35) Emergency Dysrhythmia Protocol (05/29/25 07:35) Rhythm Strips Once Every Shift (05/29/25 07:35) Oxygen By Nasal Cannula (05/29/25 07:35) Vital Signs Date Time Temp Pulse Resp B/P (MAP) Pulse Ox O2 Delivery O2 Flow Rate FiO2 05/29/25 06:00 72 20 118/71 (87) 92 05/29/25 05:31 97.8 79 15 133/69 (90) 90 97.8 05/29/25 05:00 18 98 Room Air* 0 21 05/29/25 04:48 62 05/29/25 04:37 98.3 80 22 152/102 98 98.3 05/29/25 04:25 15 Room Air* 0 21 Laboratory Tests Test 05/29/25 05:08 05/29/25 06:17 White Blood Count 5.9 10^3/uL (4.4-10.8) Lactic Acid Level 2.0 mmol/L (0.4-2.0) Medications Medications Dose Ordered Sig/Annita Route Start Time Stop Time Status Last Admin Dose Admin Albuterol 5 mg ONCE ONCE NEB 05/29/25 05:00 05/29/25 05:01 DC 05/29/25 05:00 5 MG Azithromycin 250 ml @ 125 mls/hr ONCE ONCE IV 05/29/25 06:15 05/29/25 08:14 05/29/25 06:54 125 MLS/HR Ceftriaxone Sodium 50 ml @ 100 mls/hr ONCE ONCE IV 05/29/25 06:15 05/29/25 06:44 DC 05/29/25 06:27 100 MLS/HR Magnesium Sulfate/ Dextrose 100 ml @ 100 mls/hr ONCE ONCE IV 05/29/25 05:00 05/29/25 05:59 DC 05/29/25 05:00 100 MLS/HR Prednisone 40 mg ONCE ONCE PO 05/29/25 05:00 05/29/25 05:01 DC 05/29/25 05:00 40 MG Assessment/Plan Assessment/Plan 64-year-old male admitted for acute hypoxic respiratory failure secondary to asthma exacerbation, with worsening dyspnea after smoke/air exposure and incomplete outpatient steroid therapy, requiring inpatient bronchodilator treatments and systemic steroids. Acute hypoxic respiratory failure likely to asthma exacerbation Supplemental oxygen to maintain SpO2 >92% Continuous pulse oximetry ordered steriods atc ordered duoneb atc cxr normal Acute asthma exacerbation Likely triggered by chimney smoke exposure Scheduled nebulized bronchodilators (Duonebs) Systemic steroids (continue IV steroids) Monitor respiratory status closely Pulmonary consult if poor response acute Cough Likely related to asthma exacerbation Monitor sputum characteristics No evidence of pneumonia on CXR Tobacco and marijuana use Counseling on cessation, pt declined nicotine Avoid smoking during admission chronic problems Schizophrenia Continue home psychiatric medications as appropriate History of peptic ulcer disease Consider GI prophylaxis while on steroids History of lower GI bleed with polyps removed No active bleeding Asthma Tobacco use Marijuana use FEN / PPx Fluids: Maintain hydration Electrolytes: Monitor BMP Nutrition: Regular diet as tolerated DVT Prophylaxis: SCDs or pharmacologic prophylaxis as indicated GI Prophylaxis: PPI while on systemic steroids Disposition Admit to medicine for management of acute hypoxic respiratory failure due to asthma exacerbation. Continue systemic steroids, scheduled bronchodilator treatments, and oxygen therapy. Monitor respiratory status closely and escalate care if no improvement. Plan discussed with: Patient My Orders Orders - DUNG CLEARY DNP Procedure Category Date Status Time Albuterol Medneb PHA 05/29/25 Verified (Ventolin Medneb) 10:00 Ipratropium Medneb PHA 05/29/25 Verified (Atrovent Medneb) 10:00 Methylprednisolone PHA 05/29/25 Verified Sod Succ (Solu Medrol 14:00 Pantoprazole PHA 05/29/25 Verified (Protonix) 07:45 Pantoprazole PHA 05/29/25 Verified (Protonix) 10:00 Admit ADMIT 05/29/25 Verified 07:35 Allergies HERACLIO 05/29/25 Verified 07:35 Code Status CODE 05/29/25 Verified 07:35 0.9% Ns 1000 Ml PHA 05/29/25 Verified 07:45 Ondansetron Hcl PHA 05/29/25 Verified (Zofran) 07:45 Docusate Sodium PHA 05/29/25 Verified Capsule (Colace 07:45 Enoxaparin Sodium PHA 05/29/25 Verified (Lovenox) 10:00 Complete Blood Count LAB 05/30/25 Verified 04:00 Comprehensive LAB 05/30/25 Verified Metabolic Panel 04:00 Condition: Stable HERACLIO 05/29/25 Verified 07:35 BRP HERACLIO 05/29/25 Verified 07:35 Morphine Sulfate PHA 05/29/25 Verified Injection 07:45 Sequential HERACLIO 05/29/25 Verified Compression Device Nitroglycerin PHA 05/29/25 Verified Sublingual (Ntrostat 07:45 Stat Ekg For Chest [facility] 05/29/25 Verified Pain 07:35 Notify Md Of Changes [facility] 05/29/25 Verified From Base 07:35 Boiler Plant Operator For [facility] 05/29/25 Verified 24 Hours 07:35 Emergency Dysrhythmia [facility] 05/29/25 Verified Protocol 07:35 Rhythm Strips Once [facility] 05/29/25 Verified Every Shift 07:35 Oxygen By Nasal 05/29/25 Verified Cannula 07:35 Date of Service: May 29, 2025 Billing Provider: DUNG CLEARY DNP Common Visit Codes: [id number] INP/OBS CARE (HIGH) DUNG CLEARY DNP May 29, 2025 07:46
[2025-05-29 08:10] VITALS: BP 132/70; PULSE 68; RESP 20; TEMP 98.3; O2SAT 96
[2025-05-29 08:20] VITALS: O2SAT 96
[2025-05-29 09:00] VITALS: BP 141/64; PULSE 87; RESP 29; O2SAT 96
[2025-05-29] MEDS ORDERED: ALBUTEROL SULF 2.5 MG/0.5ML(0.5%) NEB SOLN NEB SCH (10:00)
[2025-05-29] MEDS ORDERED: ENOXAPARIN SOD 40 MG/0.4 ML SYRINGE SC SCH (10:00)
[2025-05-29] MEDS ORDERED: IPRATROPIUM BROM 0.5 MG/2.5ML INH SOL NEB SCH (10:00)
[2025-05-29] MEDS ORDERED: methylPREDNISolone SOD SUCC 40 MG/ML VL IV SCH (14:00)
[2025-05-30] MEDS ORDERED: PANTOPRAZOLE 40 MG/10 ML VIAL INJ IV SCH (10:00)
--- NOTE | 2025-05-30 10:09 | ECG ---
[facility] Test Date: 2025-05-29 Test Time: 04:48:25 Pat Name: NANI BEAVERS Department: ED Room: [address] [place] [address] Gender: M Customer Contact Representative: LACEY : 1960 Requested By: EMIR REBOLLEDO Order Number: [id number] Reading MD: Measurements Intervals [place] Rate: 62 P: 86 HI: 110 QRS: 73 QRSD: 90 T: 68 QT: 429 QTc: 436 Interpretive Statements Sinus rhythm Borderline short HI interval Left ventricular hypertrophy Please click the below link to view image of tracing.
== END 2025-05-29 09:02 | disposition left against medical advice (07) | DRG 189 ==
LOC: EDUNIT# 04:25 → ER 04:25 → EDBD 04:25 → OVERFLOW 07:35
PROVIDERS: ADMIT Nurse Practitioner Family; ATTEND Nurse Practitioner Family
DX: J96.01 Acute respiratory failure with hypoxia (principal); J45.901 Unspecified asthma with (acute) exacerbation; F20.9 Schizophrenia, unspecified; Z53.29 Procedure and treatment not carried out because of patient's decision for other reasons; F17.210 Nicotine dependence, cigarettes, uncomplicated; F12.90 Cannabis use, unspecified, uncomplicated; Z79.899 Other long term (current) drug therapy; Z87.11 Personal history of peptic ulcer disease
CPT/HCPCS: 36415; 36600; 71045; 80053; 82805; 83605; 83735; 83880; 84484; 85025; 87040; 93005; 94640; 96365; G0378